=== PATIENT | male | born 1955 | race Caucasian/White ===

== ENCOUNTER 2019-09-30 13:57 | Emergency (ER) | payer OTHER ==
[~2019-09-30] VITALS: Ht 188 cm; Wt 98.9 kg
--- NOTE | 2019-09-30 13:58 | NUR ---
Patient BIBA ALS accompanied by Kian aparicio 101, transferred to bed 7. RN evaluating patient at bedside.
[2019-09-30 14:05] VITALS: BP 145/97
--- NOTE | 2019-09-30 14:11 | NUR ---
64 Y/O MALE BIBA FROM HOME C/O SUDDEN ONSET CHEST PAIN THAT RADIATES TO LT ARM. PT STATES PAIN IS UNPROVOKED AND 4/10 AT THIS TIME. DENIES SOB. +NAUSEA, DENIES VOMITING/DIARRHEA. RR EVEN AND UNLABORED. HOB ELEVATED, PLACED ON [employer], PULSE OX, AND BP CUFF. AWAKE AND ALERT. GIVEN .4 NITRO AND [address]
--- NOTE | 2019-09-30 14:12 | NUR ---
DR HUITRON AT BEDSIDE EXAMINING PT
--- NOTE | 2019-09-30 14:18 | NUR ---
EKG completed by EMT at bedside.
[2019-09-30 14:35] LABS: BASOPHILS # (AUTO) 0.1 K/uL (0.00-0.22); BASOPHILS % (AUTO) 0.5 % (0.0-2.0); EOSINOPHILS # (AUTO) 0.3 K/uL (0-0.4); EOSINOPHILS % (AUTO) 2.7 % (0.0-4.0); HEMOGLOBIN 14.3 g/dL (12.0-18.0); LYMPHOCYTES # (AUTO) 1.3 K/uL (2.0-11.5); LYMPHOCYTES % (AUTO) 13.5 % (20.5-51.1); MEAN CORPUSCULAR HEMOGLOBIN 31 pg (27-31); MEAN CORPUSCULAR HGB CONC 33 g/dL (33-37); MEAN CORPUSCULAR VOLUME 92.4 fL (80-94); MONOCYTES # (AUTO) 0.9 K/uL (0.8-1.0); MONOCYTES % (AUTO) 9.2 % (1.7-9.3); NEUTROPHILS # (AUTO) 6.9 K/uL (1.8-7.7); NEUTROPHILS % (AUTO) 74.1 % (42.2-75.2); PLATELET COUNT (AUTO) 188 K/uL (140-450); RED BLOOD CELL COUNT(AUTO) 4.65 MIL/uL (4.20-6.10); RED CELL DISTRIBUTION WIDTH 14.1 % (11.6-13.7); WHITE BLOOD COUNT (AUTO) 9.3 K/uL (4.8-10.8)
[2019-09-30 14:52] LABS: ANION GAP 14.6 (8-16); CARBON DIOXIDE 26.4 mmol/L (21-32); CREATININE 1.9 mg/dL (0.6-1.3); TOTAL BILIRUBIN 0.5 mg/dL (0.0-1.0)
[2019-09-30] MEDS ORDERED: SIMV20TA1 PO (15:58)
[2019-09-30] MEDS ORDERED: PANT40EC PO (15:58)
[2019-09-30] MEDS ORDERED: ASPI-1822 PO (15:58)
[2019-09-30] MEDS ORDERED: ZYL300 PO (15:58)
[2019-09-30] MEDS ORDERED: MELO15TA11 PO (15:58)
[2019-09-30] MEDS ORDERED: HYDR-2849 PO (15:58)
[2019-09-30] MEDS ORDERED: METF1000 PO (15:58)
--- NOTE | 2019-09-30 16:05 | NUR ---
PT SITTING UPRIGHT IN BED AWAKE AND ALERT. STATES 4/10 CHEST PAIN. RR EVEN AND UNLABORED. VSS. WILL CONTINUE TO MONITOR
--- NOTE | 2019-09-30 17:58 | NUR ---
RESTING WITH EYES CLOSED, AROUSABLE TO NAME. VSS. WILL CONTINUE TO MONITOR
--- NOTE | 2019-09-30 18:02 | NUR ---
REPORT CALLED TO VERONICA ARMSTRONG AT [facility].
--- NOTE | 2019-09-30 18:06 | NUR ---
PT AMBULATED TO RESTROOM WITH STEADY GAIT
--- NOTE | 2019-09-30 19:18 | NUR ---
Pt report given to VERONICA GALLEGOS. Transfer of care at this time.
--- NOTE | 2019-09-30 19:19 | NUR ---
Lucero fleming in [facility] - 09/30/19 at 1920 by [email or web address] RECIEVED REPORT FROM VERONICA SOTO. TRANSFER OF CARE AT THIS TIME.
--- NOTE | 2019-09-30 19:22 | NUR ---
RECIEVED REPORT FROM VERONICA SOTO. TRANSFER OF CARE AT THIS TIME.
--- NOTE | 2019-09-30 19:33 | NUR ---
[facility] TRANSPORT AT BEDSIDE
[2019-09-30 20:00] VITALS: BP 102/63
--- NOTE | 2019-09-30 20:00 | NUR ---
PT TAKEN BY [facility] TO [facility]
--- NOTE | 2019-09-30 20:00 | NUR ---
Patient to be transferred to [facility] IN STABLE CONDITION. Is being transferred due to HIGHER LEVEL OF CARE. Receiving facility has accepting physician and available space. ER physician has signed transfer form. Patient or responsible constitution party has agreed to transfer and signed form. Patient belongings inventoried and will be sent with patient. Copy of nursing notes, lab reports, EKG, Physicians Orders and X-rays to be sent with patient.
== END 2019-09-30 20:00 | disposition short-term general hospital (02) ==
LOC: MED 13:57
DX: R07.9 Chest pain, unspecified (principal); E11.9 Type 2 diabetes mellitus without complications; I10 Essential (primary) hypertension; E78.00 Pure hypercholesterolemia, unspecified; K21.9 Gastro-esophageal reflux disease without esophagitis; Z88.0 Allergy status to penicillin
CPT/HCPCS: 36415; 71045; 80053; 83880; 84484; 85025; 93005; 99285; Q0092